=== PATIENT | male | born 1980 | race Caucasian/White ===

== ENCOUNTER 2018-03-08 10:00 | Emergency (ER) | payer BC ==
[2018-03-08] MEDS ORDERED: NEURONTIN PO ONE (10:40)
[2018-03-08] MEDS ORDERED: NACL 0.9% 1000 ML 1,000 ML IV ONE (10:40)
[2018-03-08] MEDS ORDERED: ZOFRAN IV ONE (10:40)
--- NOTE | 2018-03-08 10:45 | Emergency Department Report ---
HPI - General Chief Complaint: Medical Clearance Time Seen by Provider: 03/08/18 10:18 - HPI HPI: 37-year-old male presents to the emergency department with concern for some withdrawal symptoms and having passed out this morning and his hotel room. The patient has been having some chills, nausea or vomiting, intermittent shortness of breath and then passed out. The patient has been 3 days without his Neurontin and tramadol. He takes tramadol for chronic back pain ever since the patient had gastric bypass surgery 7 years ago. He takes Neurontin as a treatment for his bipolar disorder and some other chronic pains. The patient is visiting from [place] and returns there in 3 days where he says that he has a primary care and/or psychiatrist for follow-up. He has not taken anything for his symptoms prior to presentation. ED Past Medical Hx - Past Medical History Previous Medical History?: No - Surgical History Past Surgical History?: Yes Additional Surgical History: gastric bypass - Social History Smoking Status: Never Smoker Substance Use Type: None - Medications Home Medications: Home Medications Medication Instructions Recorded Confirmed Last Taken Type Ferrous Sulfate [Feosol] 325 mg PO BID #20 tablet 03/08/18 Unknown Rx Gabapentin [Neurontin] 400 mg PO Q6H PRN 03/08/18 03/08/18 03/04/18 History Gabapentin [Neurontin] 400 mg PO QDAY #15 capsule 03/08/18 Unknown Rx Gabapentin [Neurontin] 800 mg PO BID 03/08/18 03/08/18 03/04/18 History Ondansetron [Zofran Odt] 4 mg PO Q8H PRN #10 tab.rapdis 03/08/18 Unknown Rx oxyCODONE /ACETAMINOPHEN [Percocet 1 tab PO Q8H PRN 03/08/18 03/08/18 03/04/18 History 5/325] traMADol [Ultram] 100 mg PO Q6HR PRN 03/08/18 03/08/18 03/04/18 History ED Review of Systems ROS: Stated complaint: FAINTED/WEAKNESS Other details as noted in HPI Constitutional: chills, weakness Eyes: denies: eye pain, eye discharge, vision change ENT: denies: ear pain, throat pain Respiratory: shortness of breath (intermittent). denies: cough Cardiovascular: syncope. denies: chest pain Gastrointestinal: denies: abdominal pain, nausea, diarrhea Genitourinary: denies: urgency, dysuria Musculoskeletal: denies: joint swelling, arthralgia Skin: denies: rash, change in color Neurological: denies: numbness, paresthesias Physical Exam - Physical Exam Vital Signs: Vital Signs 03/08/18 10:08 Temperature 98.3 F Pulse Rate 100 H Respiratory 18 Rate Blood Pressure 121/73 O2 Sat by Pulse 100 Oximetry Physical Exam: GENERAL: The patient is well-developed well-nourished. HENT: Normocephalic. Atraumatic. Patient has moist mucous membranes. EYES: Extraocular motions are intact. Pupils equal reactive to light bilaterally. Fatigable horizontal nystagmus. NECK: Supple. Trachea is midline. CHEST/LUNGS: Clear to auscultation. There is no respiratory distress noted. HEART/CARDIOVASCULAR: Regular. There is no tachycardia. There is no murmur. ABDOMEN: Abdomen is soft, nontender. Patient has normal bowel sounds. There is no abdominal distention. SKIN: Skin is warm and dry. NEURO: The patient is awake, alert, and oriented. The patient is cooperative. The patient has no focal neurologic deficits. The patient has normal speech. Cranial nerves II through XII grossly intact. No pronator drift. No dysmetria. MUSCULOSKELETAL: There is no tenderness or deformity. There is no limitation range of motion. There is no evidence of acute injury. ED Course Vital Signs 03/08/18 10:08 Temperature 98.3 F Pulse Rate 100 H Respiratory 18 Rate Blood Pressure 121/73 O2 Sat by Pulse 100 Oximetry ED Medical Decision Making - Lab Data Result diagrams: 03/08/18 10:50 03/08/18 10:50 - EKG Data -: EKG Interpreted by Ma EKG shows normal: sinus rhythm, axis, intervals, QRS complexes, ST-T waves Rate: normal - EKG Data When compared to previous EKG there are: previous EKG unavailable Interpretation: normal EKG - Radiology Data Radiology results: report reviewed, image reviewed EXAM: CT ANGIO CHEST HISTORY: Syncope, SOB, elevated dimer TECHNIQUE: CTA of the chest was performed after the administration of intravenous contrast. Rotating MIPS were included. 100 cc of Omnipaque 350 intravenous contrast were given. Reconstructions were included in the coronal and sagittal planes. PRIORS: None. FINDINGS: Pulmonary arteries and thoracic aorta: The study is adequate for diagnostic purposes. No central or segmental pulmonary embolism. The thoracic aorta is normal in caliber. Lungs and airways: No pleural effusion. No airspace consolidation. The airways are patent. No bronchiectasis. No pulmonary nodules or masses. Mediastinum, heart, pericardium: No mediastinal lymphadenopathy. No cardiac chamber enlargement. No pericardial effusion. Thoracic inlet, chest wall, axilla: No chest wall masses. The visualized portions of the thyroid gland demonstrate no focal lesion. No axillary lymphadenopathy. Upper abdomen: A gastric lap band is present. Separate origins of the hepatic, splenic and left gastric arteries are seen from the abdominal aorta. Bones: Dextroconvex scoliosis of the thoracic spine is seen. 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 IMPRESSION: No central or segmental pulmonary embolism. No acute process in the chest. Transcribed By: MG Dictated By: JLUIS CALDERON MD Electronically Authenticated By: JLUIS CALDERON MD Signed Date/Time: 03/08/18 1301 - Medical Decision Making Patient presents to the emergency department with complaint of passing out this morning as well as some recent nausea and vomiting after the patient stopped his tramadol and Neurontin cold turkey. On physical examination, the patient does not have any focal, motor or sensory deficits and his cranial nerves are intact. EKG does not show any signs of ST elevation MS or significant dysrhythmia. Patient's labs are mostly unremarkable except for a slightly elevated and equivocal d-dimer. For this reason a CT angiography of the chest was done that does not show any pulmonary embolism, dissection or any other acute processes. Patient was given some IV fluid, Zofran for nausea and a dose of the Neurontin. The patient says that he takes tramadol for chronic pains for the past 7 years. Withdrawal from tramadol may cause some of his previously mentioned symptoms but he is already on day 3 of withdrawal from this. I feel that stopping the Neurontin cold turkey is worse in the tramadol and the patient will go back to taking his full dose Neurontin when he returns home on Tuesday. I will prescribe him some Neurontin and titrate it up over the next few days. I told the patient that we do not refill chronic pain medication in the emergency department. He has been given a prescription for Zofran and some iron pills for his anemia. He has been instructed to return to the closest emergency Department with any worsening of his symptoms are any acute distress, otherwise following up with his primary care physician and psychiatrist when he returns to [place]. - Differential Diagnosis withdrawal, gastroenteritis, dysrhythmia Critical Care Time: No Critical care attestation.: If time is entered above; I have spent that time in minutes in the direct care of this critically ill patient, excluding procedure time. ED Disposition Clinical Impression: Withdrawal from opioids Withdrawal symptoms, drug or narcotic Qualifiers: Substance type: other psychostimulant Qualified Code(s): F15.93 - Other stimulant use, unspecified with withdrawal Nausea & vomiting Qualifiers: Vomiting type: unspecified Vomiting Intractability: unspecified Qualified Code( s): R11.2 - Nausea with vomiting, unspecified Anemia Qualifiers: Anemia type: unspecified type Qualified Code(s): D64.9 - Anemia, unspecified Disposition: DC-01 TO HOME OR SELFCARE Is pt being admited?: No Condition: Stable Instructions: Iron Rich Diet (ED), Acute Nausea and Vomiting (ED), Opioid Withdrawal (ED), Anemia (ED) Additional Instructions: Please follow-up with your primary care physician and your psychiatrist as soon as you return home to [place]. Return to the emergency Department with any worsening of your symptoms or any acute distress. Prescriptions: Ferrous Sulfate [Feosol] 325 mg PO BID #20 tablet Gabapentin [Neurontin] 400 mg PO QDAY #15 capsule Ondansetron [Zofran Odt] 4 mg PO Q8H PRN #10 tab.rapdis PRN Reason: Nausea Referrals: PRIMARY CARE, [Primary Care Provider] - 3-5 Days Time of Disposition: 13:26
[2018-03-08] MEDS ORDERED: THERAGRAN Tab PO ONE (11:05)
[2018-03-08 11:20] LABS: Hemoglobin 8.6 gm/dl (11.8-15.2); Mean Corpuscular HGB Conc 31 % (32-34); Platelet Count 315 K/mm3 (140-440); Red Blood Count 4.75 M/mm3 (3.65-5.03); Red Cell Distribution Width 18.8 % (13.2-15.2)
[2018-03-08 11:23] LABS: Mean Corpuscular Hemoglobin 18 pg (28-32); Mean Corpuscular Volume 59 fl (84-94)
[2018-03-08 11:39] LABS: Alanine Aminotransferase 8 units/L (7-56); Albumin 3.8 g/dL (3.9-5); BUN/Creatinine Ratio 14; Blood Urea Nitrogen 10 mg/dL (9-20); Calcium 8.6 mg/dL (8.4-10.2); Hemolysis Index 0
[2018-03-08 11:42] LABS: Bilirubin,Urine NEG (Negative); Blood,Urine NEG (Negative); Color,Urine Yellow (Yellow); Mucus,Urine FEW /HPF; Protein,Urine <15 mg/dL mg/dL (Negative)
[2018-03-08 11:56] LABS: Amphetamine Screen,Urine PRESUMPTIVE NEGATIVE; Benzodiazepines Screen,Urine PRESUMPTIVE NEGATIVE; Cannabinoid Screen,Urine PRESUMPTIVE NEGATIVE; Cocaine Screen,Urine PRESUMPTIVE NEGATIVE; Methadone Screen,Urine PRESUMPTIVE NEGATIVE; Opiate Screen,Urine PRESUMPTIVE NEGATIVE
[2018-03-08 12:37] LABS: Total Cells Counted 100
[2018-03-08 12:38] LABS: Anisocytosis 1+; Hypochromasia 2+; Ovalocytes 1+; Poikilocytosis 2+; Tear Drop Cells Few
[2018-03-08 12:39] LABS: Platelet Estimate Cons; Target Cells Rare
[2018-03-08 12:52] VITALS: BP 138/78
--- NOTE | 2018-03-08 13:02 | Cat Scan Report ---
FINAL REPORT EXAM: CT ANGIO CHEST HISTORY: Syncope, SOB, elevated dimer TECHNIQUE: CTA of the chest was performed after the administration of intravenous contrast. Rotating MIPS were included. 100 cc of Omnipaque 350 intravenous contrast were given. Reconstructions were included in the coronal and sagittal planes. PRIORS: None. FINDINGS: Pulmonary arteries and thoracic aorta: The study is adequate for diagnostic purposes. No central or segmental pulmonary embolism. The thoracic aorta is normal in caliber. Lungs and airways: No pleural effusion. No airspace consolidation. The airways are patent. No bronchiectasis. No pulmonary nodules or masses. Mediastinum, heart, pericardium: No mediastinal lymphadenopathy. No cardiac chamber enlargement. No pericardial effusion. Thoracic inlet, chest wall, axilla: No chest wall masses. The visualized portions of the thyroid gland demonstrate no focal lesion. No axillary lymphadenopathy. Upper abdomen: A gastric lap band is present. Separate origins of the hepatic, splenic and left gastric arteries are seen from the abdominal aorta. Bones: Dextroconvex scoliosis of the thoracic spine is seen. 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 IMPRESSION: No central or segmental pulmonary embolism. No acute process in the chest.
== END 2018-03-08 13:37 | disposition home or self-care (01) ==
LOC: ED 10:00
DX: F15.93 Other stimulant use, unspecified with withdrawal (principal); D64.9 Anemia, unspecified
CPT/HCPCS: 36415; 71275; 80053; 80307; 81001; 84443; 84484; 85007; 85025; 85379; 93005; 93010; 96361; 96374; 99285; G0480; J2405; J7030; Q9967; 80320